=== PATIENT | female | born 1980 | race Caucasian/White ===

== ENCOUNTER 2020-01-31 22:24 | Emergency (ER) | payer OTHER ==
[~2020-01-31] VITALS: Ht 154.9 cm; Wt 80.3 kg
[2020-01-31] MEDS ORDERED: METFORMIN HCL500 M3 PO (22:44)
[2020-02-01] MEDS ORDERED: FLEXERIL PO (00:03)
[2020-02-01] MEDS ORDERED: HYDROCODON-ACE1 EAC8 PO (00:03)
[2020-02-01 00:27] VITALS: BP 135/85
== END 2020-02-01 00:27 | disposition home or self-care (01) ==
LOC: M.ERS 22:24
DX: M54.16 Radiculopathy, lumbar region (principal); E78.00 Pure hypercholesterolemia, unspecified; I10 Essential (primary) hypertension; E11.9 Type 2 diabetes mellitus without complications; Z88.6 Allergy status to analgesic agent; Z88.0 Allergy status to penicillin; Z88.2 Allergy status to sulfonamides; Z91.040 Latex allergy status; Z90.49 Acquired absence of other specified parts of digestive tract; Z98.890 Other specified postprocedural states; Z86.73 Personal history of transient ischemic attack (TIA), and cerebral infarction without residual deficits

== ENCOUNTER 2020-05-08 12:16 | Emergency (ER) | payer OTHER ==
[~2020-05-08] VITALS: Ht 154.9 cm; Wt 80.7 kg
[~2020-05-08 12:16] MED LIST: FLEXERIL PO; HYDROCODON-ACE1 EAC8 PO; METFORMIN HCL500 M3 PO
[2020-05-08 12:36] LABS: URINE BILIRUBIN NEGATIVE (Negative); URINE BLOOD NEGATIVE (Negative); URINE CLARITY CLEAR; URINE COLOR YELLOW; URINE GLUCOSE-RANDOM 2+ (Negative); URINE KETONES NEGATIVE (Negative); URINE LEUKOCYTES-REFLEX NEGATIVE (Negative); URINE NITRITE-REFLEX NEGATIVE (Negative); URINE PROTEIN 2+ (Negative); URINE SPECIFIC GRAVITY >= 1.030 (1.005-1.030); URINE UROBILINOGEN 0.2 E.U./dl (0.2-1.0)
[2020-05-08] MEDS ORDERED: COUMADIN 1MG TAB1 M1 PO (12:40)
[2020-05-08] MEDS ORDERED: ABILIFY20 MG PO (12:40)
[2020-05-08] MEDS ORDERED: LISINOPRIL20 MG PO (12:40)
[2020-05-08 12:45] LABS: BACTERIA-REFLEX 1-9 Few /HPF (None Seen); CASTS None Seen /LPF (None Seen); CRYSTALS None Seen /LPF (None Seen); MUCUS >6 Heavy strn/LPF (None Seen); SQUAMOUS 4-10 Moderate /LPF (0-3); URINE RBC 3-10 Few /HPF (0-2); URINE WBC-REFLEX 6-15 Few /HPF (0-5)
[2020-05-08 12:50] LABS: BE 0.1 mmol/L (-2 to +3); PCO2 VENOUS 38.6 mmHg (41.0-51.0); PO2 VENOUS 36.4 mmHg (35.0-45.0)
[2020-05-08 12:53] LABS: ABSOLUTE BASOPHILS 0.1 thou/uL (0.0-0.2); ABSOLUTE EOSINOPHILS 0.1 thou/uL (0.0-0.7); ABSOLUTE LYMPHOCYTES 1.8 thou/uL (0.8-5.3); ABSOLUTE MONOCYTES 0.6 thou/uL (0.0-1.2); BASOPHILS 0.7 %; EOSINOPHILS 0.6 %; HEMATOCRIT 41.1 % (37.0-47.0); HEMOGLOBIN 14.4 gm/dL (12.0-15.0); LYMPHOCYTES 18.6 %; MCH 28.6 pg (26.0-34.0); MCV 81.6 fL (80.0-100.0); MONOCYTES 6.8 %; NUCLEATED RBCS 0 /100WBC; PLATELET COUNT* 336 thou/uL (150-400); POLYS 73.3 %; RBC 5.04 mil/uL (4.20-5.00); RDW-CV 13.2 % (10.5-14.5); WBC 9.5 thou/uL (4.0-11.0)
[2020-05-08 13:09] LABS: CALCIUM 8.8 mg/dL (8.5-10.1); POTASSIUM 3.8 mmol/L (3.5-5.1)
[2020-05-08 13:14] LABS: ALBUMIN 3.9 g/dL (3.4-5.0); TOTAL BILIRUBIN 0.3 mg/dL (<0.1-1.0); TOTAL PROTEIN 7.6 g/dL (6.4-8.2)
[2020-05-08 13:39] LABS: APTT 25.5 Seconds (25.0-31.3); PROTIME 9.9 Seconds (9.20-11.50)
[2020-05-08] MEDS ORDERED: PHENERGAN 25 MG25 M1 PO (13:52)
[2020-05-08 15:04] VITALS: BP 127/73
--- NOTE | 2020-05-10 08:33 | EKG ---
[place] [address] ELECTROCARDIOGRAM REPORT Name: SHERRILLNIESHA Room: [facility]#: [id number] Admission: 05/08/20 Attend Phys: Discharge: 05/08/20 Date of : 82 Date of Service: 05/08/20 1255 Report #: [id number] THIS REPORT FOR: //name// [facility] ED Test Date: 2020-05-08 Test Time: 12:55:51 Pat Name: NIESHA MCCARTNEY Department: Room: Gender: General Office Associate: ARTEM : 1980 Requested By: Shelli Ortiz Order Number: [id number] MD: Pete Moody Measurements Intervals [place] Rate: 69 P: 43 [place]: 140 QRS: 67 QRSD: 89 T: 22 QT: 377 QTc: 404 Interpretive Statements Sinus rhythm Baseline wander in lead(s) V4 No previous ECG available for comparison Electronically Signed On 05-10-2020 8:32:31 CDT by Pete Moody [email or web address] <ELECTRONICALLY SIGNED> By: Pete Moody MD, [facility] 05/10/20 0832 1255 Pete Moody MD, [facility] /EPI
== END 2020-05-08 15:05 | disposition home or self-care (01) ==
LOC: M.ERS 12:16
PROVIDERS: Nurse Practitioner Family
DX: E11.65 Type 2 diabetes mellitus with hyperglycemia (principal); R51 Headache; I10 Essential (primary) hypertension; E78.00 Pure hypercholesterolemia, unspecified; R79.1 Abnormal coagulation profile; Z88.6 Allergy status to analgesic agent; Z88.5 Allergy status to narcotic agent; Z91.040 Latex allergy status; Z88.0 Allergy status to penicillin; Z88.2 Allergy status to sulfonamides; Z79.899 Other long term (current) drug therapy; Z79.01 Long term (current) use of anticoagulants; Z86.73 Personal history of transient ischemic attack (TIA), and cerebral infarction without residual deficits; Z90.49 Acquired absence of other specified parts of digestive tract